=== PATIENT | male | born 2000 | race Caucasian/White ===

== ENCOUNTER 2019-02-23 11:02 | Emergency (ER) | payer MEDICAID ==
[2019-02-23 11:24] VITALS: BP 129/75
[2019-02-23] MEDS ORDERED: Ibuprofen 800 MG Tab PO ONE (12:10)
--- NOTE | 2019-02-23 12:14 | EDM.PDOC ---
ED HPI GENERAL MEDICAL PROBLEM - General Chief Complaint: Lower Extremity Injury/Pain Stated Complaint: RT LEG MUSCLE SPASM FOR 14 HRS Time Seen by Provider: 02/23/19 11:52 Source of Information: Reports: Patient History Limitations: Reports: No Limitations - History of Present Illness INITIAL COMMENTS - FREE TEXT/NARRATIVE: Patient is a 18-year-old male who presents to the ED complaining of right-sided medial Achilles pain. Patient states he performed some lunges on Saturday and approximately one day later started developing this achy sensation to his right Achilles. He had been working the full day as well and been on his feet most of the day. Pain is isolated worse with palpation. Denies any swelling, bruising, redness, or appears to just. Pain is sharp in nature as well with no radiation. She states was walking he didn't have to limp back to the room. He was wearing shoes that have extensive cushioning with very little support. While he was performing these exercises maneuvers. He has not taken any medications since onset of discomfort. He has no history of DVT or PE. No history of previous injury to his Achilles or ankle as of recent. Again he denies any foot drop or radiation of pain. Right Lower Leg Pain Score (Numeric/FACES): 7 - Related Data Allergies Allergy/AdvReac Type Severity Reaction Status Date / Time No Known Allergies Allergy Verified 07/26/16 05:16 Past Medical History - Past Health History Medical/Surgical History: Denies Medical/Surgical History Neurological History: Reports: Headaches, Chronic Social & Family History - Tobacco Use Smoking Status *Q: Never Smoker - Caffeine Use Caffeine Use: Reports: None - Recreational Drug Use Recreational Drug Use: Yes Recreational Drug Type: Reports: Marijuana/Hashish Recreational Drug Use Frequency: Daily - Living Situation & Occupation Living situation: Reports: Single, with Family Occupation: Employed Review of Systems - Review of Systems Review Of Systems: ROS reveals no pertinent complaints other than HPI. ED EXAM, GENERAL - Physical Exam Exam: See Below Exam Limited By: No Limitations General Appearance: Alert, WD/WN, No Apparent Distress Ears: Hearing Grossly Normal Nose: Normal Inspection Throat/Mouth: Normal Voice, No Airway Compromise Neck: Normal Inspection, Supple Respiratory/Chest: No Respiratory Distress, Lungs Clear, Normal Breath Sounds, No Accessory Muscle Use Cardiovascular: Normal Peripheral Pulses, Regular Rate, Rhythm, No Murmur Peripheral Pulses: 2+: Radial (L), Posterior Tibial (R), Dorsalis Pedis (R) Extremities: Normal Inspection, No Pedal Edema, Normal Capillary Refill, Other ( Patient has pain on the distal aspect of the Achilles along the medial aspect of the right ankle. No pain with palpation of the calf. Dias test was negative. No Homans sign. No paresthesias to the foot or toes. Minimal decreased range of motion noted with examination of the ankle. No pain along the lateral aspect of the ankle as well. ) Neurological: Alert, Oriented, CN II-XII Intact, Normal Cognition, No Motor/ Sensory Deficits. No: Normal Gait (Lymph while walking to the ED.) Psychiatric: Normal Affect, Normal Mood Skin Exam: Warm, Dry, Intact, Normal Color Course - Vital Signs Last Recorded V/S: Last Vital Signs Temp 98.7 F 02/23/19 11:20 Pulse 91 02/23/19 11:20 Resp 16 02/23/19 11:20 BP 129/75 02/23/19 11:20 Pulse Ox 100 02/23/19 11:20 - Re-Assessments/Exams Free Text/Narrative Re-Assessment/Exam: NO XRAY OF THE RIGHT ANKLE WILL BE OBTAINED. THEIR HAS BEEN NO TRAUMA THAT HAD PRECIPTATED THIS PAIN. I SUSPECT THE PATIENT HAS IRRITATED HIS ACHILLES AND THE ANKLE LIGAMENTS WHILE PERFORMING LUNGES THE DAY PRIOR. HE WAS WEARING A PAROUS SHOES THAT HAVE QUITE A BIT OF CUSHIONING WITH NO SUPPORT. HE MAY HAVE AGGRAVATED HIS ANKLE/ACHILLES WITH DOING THESE MANEUVERS. IT HAD BEEN QUITE SOME TIME SINCE HE HAD PERFORMED HIS TYPE EXERCISES. ALSO THE PATIENT IS ON HIS FEET FOR QUITE SOME TIME WHILE AT WORK WORKING IN A [employer]. Return precautions were discussed with the patient. I have ordered ibuprofen 800 mg by mouth and also crutches as along with an Rivas wrap prior to discharge. Patient had no further questions concerns and agreed with plan. Departure - Departure Time of Disposition: 12:14 Disposition: Home, Self-Care 01 Condition: Good Clinical Impression: Achilles bursitis or tendinitis Medial ankle sprain Qualifiers: Encounter type: initial encounter Laterality: right Qualified Code(s): S93.421A - Sprain of deltoid ligament of right ankle, initial encounter - Discharge Information Instructions: Elastic Bandage and RICE, Achilles Tendinitis, Crutch Use, Adult , [id number] Referrals: Saeid Norton MD [Physician] - Forms: ED Department Discharge, ED Return to Work/School Form Additional Instructions: You are to be toe-touch only for pounds in the next 2 days. Advance weight thereafter as tolerated. Utilize the Rivas wrap until pain subsides. May utilize Tylenol and ibuprofen in alternating fashion for pain. Elevate when able to reduce any pain and also apply ice to affected area 3-4 times a day, 30 minutes in duration, do not apply ice directly on the skin. If pain persists please see orthopedic surgeon Dr. Norton. Call and make an appointment. Refrain from any activities that cause worsening discomfort. Please return back to the ED if you develop any new or worsening symptoms..
== END 2019-02-23 12:30 | disposition home or self-care (01) ==
LOC: JD.ED 11:02
DX: S93.421A Sprain of deltoid ligament of right ankle, initial encounter (principal); M76.61 Achilles tendinitis, right leg; X50.9XXA Other and unspecified overexertion or strenuous movements or postures, initial encounter
CPT/HCPCS: 99283; A9270; 99282